=== PATIENT | female | born 1950 | race Asian ===

== ENCOUNTER 2025-05-10 09:49 | Day surgery (SDC) | payer MEDICARE, OTHER, SELFPAY | END 2025-05-10 11:25 | disposition home or self-care (01) | LOC: CATH 09:49 | PROVIDERS: ATTENDING PHYSICIAN Internal Medicine Cardiovascular Disease; FAMILY PHYSICIAN Family Medicine; OTHER PHYSICIAN Student in an Organized Health Care Education/Training Program | DX: I48.91 Unspecified atrial fibrillation (principal); I45.10 Unspecified right bundle-branch block; R00.1 Bradycardia, unspecified; Z53.09 Procedure and treatment not carried out because of other contraindication | CPT/HCPCS: 93005 ==

== ENCOUNTER 2025-07-04 06:12 | Day surgery (SDC) | payer MEDICARE, OTHER, SELFPAY | END 2025-07-04 10:45 | disposition home or self-care (01) | LOC: GI 06:12 | PROVIDERS: ATTENDING PHYSICIAN Internal Medicine Gastroenterology | DX: Z12.11 Encounter for screening for malignant neoplasm of colon (principal); R19.5 Other fecal abnormalities; K64.8 Other hemorrhoids; K57.30 Diverticulosis of large intestine without perforation or abscess without bleeding; K63.5 Polyp of colon | CPT/HCPCS: 45380; 88305 ==